=== PATIENT | female | born 2000 | race African-American/Black ===

== ENCOUNTER 2022-06-10 18:03 | Outpatient (CLI) | payer OTHER, SELFPAY ==
[2022-06-10 23:04] LABS: Albumin* 4.5 g/dL (3.3-5.0)
[2022-06-10 23:07] LABS: Alkaline Phosphatase* 104 U/L (40-150); Aspartate Amino Transferase* 25 U/L (12-35); Bilirubin Direct* 0.2 mg/dL (0.0-0.5); Bilirubin Total* 0.8 mg/dL (0.1-1.5); Total Protein* 9.2 g/dL (6.0-8.3)
[2022-06-10 23:08] LABS: Alanine Aminotransferase* 17 U/L (4-35)
[2022-06-13 01:15] LABS: Rapid Plasma Reagin (RPR) Reactive (Non Reactive)
[2022-06-13 13:39] LABS: HIV Serologic Interpretation HIV Abs Neg; HIV-1 Antibody Negative (Negative); HIV-2 Antibody Negative (Negative)
[2022-06-13 16:01] LABS: ANA Pattern Speckled
[2022-06-14 05:10] LABS: HIV-1 Qnt NAAT copies/mL Not Detected log cpy/mL
[2022-06-14 16:32] LABS: Treponema pallidum AbTP-PA Reactive (Non Reactive)
== END 2022-06-10 18:04 | disposition home or self-care (01) ==
PROVIDERS: Visit Provider Nurse Practitioner Family
DX: R21 Rash and other nonspecific skin eruption (principal)
CPT/HCPCS: 80076; 86039; 86592; 86593; 86701; 86702; 86780; 87536